=== PATIENT | male | born 1995 | race Caucasian/White ===

== ENCOUNTER 2019-05-16 19:01 | Emergency (ER) | payer SELFPAY ==
--- NOTE | 2019-05-16 20:25 | EDPHYS ---
Physician Documentation [facility] Name: Kojo Davalos Age: 24 yrs Sex: Male : 1995 Arrival Date: 05/16/2019 Time: 19:03 Bed 20 Private MD: ED Physician Antonio Espinoza HPI: 05/16 20:13 This 24 yrs old Male presents to ER via Ambulatory with complaints of Cough, kb Sore Throat. 20:13 The patient or guardian reports cough, that is intermittent, described as moderate, kb with no sputum. Onset: The symptoms/episode began/occurred 2 week(s) ago. Severity of symptoms: At their worst the symptoms were mild, moderate, in the emergency department the symptoms are unchanged. Modifying factors: The symptoms are alleviated by nothing, the symptoms are aggravated by nothing. Associated signs and symptoms: Pertinent positives: sore throat, Pertinent negatives: chest pain, diarrhea, ear ache, fever, nausea, rhinorrhea, vomiting. The patient has not experienced similar symptoms in the past. The patient has not recently seen a physician. Pt reports cough for 2 weeks and sore throat since this morning. Historical: - Allergies: 19:24 No Known Allergies; - Home Meds: 19:24 None [Active]; - PMHx: 19:24 Broken Ankle; Broke Rib; - PSHx: 19:24 None; - Immunization history:: Adult Immunizations not up to date. - Social history:: Smoking status: Patient uses tobacco products, denies chronic smoking, but will smoke occasionally. - Ebola Screening: : Patient negative for fever greater than or equal to 101.5 degrees Fahrenheit, and additional compatible Ebola Virus Disease symptoms Patient denies exposure to infectious person. ROS: 20:12 Constitutional: Negative for fever, chills, and weight loss, Neck: Negative for injury, kb pain, and swelling, Cardiovascular: Negative for chest pain, palpitations, and edema, Abdomen/GI: Negative for abdominal pain, nausea, vomiting, diarrhea, and constipation, Back: Negative for injury and pain, MS/Extremity: Negative for injury and deformity, Skin: Negative for injury, rash, and discoloration, Neuro: Negative for headache, weakness, numbness, tingling, and seizure. 20:12 ENT: Positive for sore throat. 20:12 Respiratory: Positive for cough, Negative for dyspnea on exertion, hemoptysis, orthopnea, pleurisy, shortness of breath, sputum production, wheezing. Exam: 20:12 Constitutional: This is a well developed, well nourished patient who is awake, alert, kb and in no acute distress. Head/Face: Normocephalic, atraumatic. Neck: Trachea midline, no thyromegaly or masses palpated, and no cervical lymphadenopathy. Supple, full range of motion without nuchal rigidity, or vertebral point tenderness. No Meningismus. Chest/axilla: Normal chest wall appearance and motion. Nontender with no deformity. No lesions are appreciated. Cardiovascular: Regular rate and rhythm with a normal S1 and S2. No gallops, murmurs, or rubs. Normal PMI, no JVD. No pulse deficits. Respiratory: Lungs have equal breath sounds bilaterally, clear to auscultation and percussion. No rales, rhonchi or wheezes noted. No increased work of breathing, no retractions or nasal flaring. Abdomen/GI: Soft, non-tender, with normal bowel sounds. No distension or tympany. No guarding or rebound. No evidence of tenderness throughout. Skin: Warm, dry with normal turgor. Normal color with no rashes, no lesions, and no evidence of cellulitis. MS/ Extremity: Pulses equal, no cyanosis. Neurovascular intact. Full, normal range of motion. Neuro: Awake and alert, GCS 15, oriented to person, place, time, and situation. Cranial nerves II-XII grossly intact. Motor strength 5/5 in all extremities. Sensory grossly intact. Cerebellar exam normal. Normal gait. 20:12 ENT: External ear(s): are unremarkable, Ear canal(s): are normal, TM's: are normal, Nose: is normal, Mouth: is normal, Posterior pharynx: Airway: normal, Tonsils: bilaterally enlarged, with erythema, Uvula: normal, midline, swelling, that is mild, erythema, that is moderate, exudate, is not appreciated. Vital Signs: 19:08 BP 117 / 65; Pulse 73; Resp 18; Temp 98.4(O); Pulse Ox 99% on R/A; Weight 63.5 kg (R); ae4 19:31 BP 113 / 63; Pulse 70; Resp 18; Pulse Ox 99% on R/A; wh MDM: 19:27 Patient medically screened. kb 20:10 Data reviewed: vital signs, nurses notes. Data interpreted: Pulse oximetry: on room air kb is 99 %. Interpretation: normal. Counseling: I had a detailed discussion with the patient and/or guardian regarding: the historical points, exam findings, and any diagnostic results supporting the discharge/admit diagnosis, radiology results, the need for outpatient follow up, a family practitioner, to return to the emergency department if symptoms worsen or persist or if there are any questions or concerns that arise at home. 05/16 19:09 Order name: Strep; Complete Time: 19:49 ae4 05/16 19:52 Order name: Throat Culture EDMS 05/16 19:41 Order name: Chest Pa And Lat (2 Views) XRAY kb Administered Medications: No medications were administered Disposition: 05/16/19 20:24 Discharged to Home. Impression: Acute pharyngitis, Cough. - Condition is Stable. - Discharge Instructions: Pharyngitis, Qyju-bg-Cuea, Cough, Adult, Fhpw-kc-Jysy, Sore Throat, Uhpd-et-Cvxa. - Prescriptions for Bromfed DM 2- 30-10 mg/5 mL Oral syrup - take 10 milliliter by ORAL route every 4 hours; 100 milliliter. - Medication Reconciliation Form, Thank You Letter, Antibiotic Education, Prescription Opioid Use, Work release form form. - Follow up: Emergency Department; When: As needed; Reason: Worsening of condition. Follow up: Private Physician; When: 2 - 3 days; Reason: Recheck today's complaints, Continuance of care, Re-evaluation by your physician. Addendum: 05/22/2019 08:03 Co-signature as Attending Physician, Antonio Espinoza MD I agree with the assessment and r n plan of care. Signatures: Dispatcher [employer] EDNM Juany Koch, MOHIT-C SALES OPERATIONS COORDINATOR-Antonio Canales MD MD rn Habalo, Winsy wh Corrections: (The following items were deleted from the chart) 05/16 20:36 20:24 05/16/2019 20:24 Discharged to Home. Impression: Acute pharyngitis; Cough. Condition is Stable. Discharge Instructions: Pharyngitis, Tern-qq-Aakl, Cough, Adult, Nyqe-ce-Gdkb, Sore Throat, Cirg-rg-Fpou. Prescriptions for Tessalon Perles 100 mg Oral Capsule - take 1 capsule by ORAL route every 8 hours As needed; 15 capsule. and Forms are Medication Reconciliation Form, Thank You Letter, Antibiotic Education, Prescription Opioid Use. Follow up: Emergency Department; When: As needed; Reason: Worsening of condition. Follow up: Private Physician; When: 2 - 3 days; Reason: Recheck today's complaints, Continuance of care, Re-evaluation by your physician. kb
--- NOTE | 2019-05-16 20:25 | ER ---
Nurse's Notes [facility] Name: Kojo Davalos Age: 24 yrs Sex: Male : 1995 Arrival Date: 05/16/2019 Time: 19:03 Bed 20 Private MD: Diagnosis: Acute pharyngitis;Cough Presentation: 05/16 19:09 Presenting complaint: Patient states: Patient states he has been coughing for 3 weeks, ae4 and now has sore throat. 19:21 Acuity: KELSEY 4 19:21 Transition of care: patient was not received from another setting of care. Onset of symptoms was May 16, 2019. Risk Assessment: Do you want to hurt yourself or someone else? Patient reports no desire to harm self or others. Initial Sepsis Screen: Does the patient meet any 2 criteria? No. Patient's initial sepsis screen is negative. Does the patient have a suspected source of infection? Yes: Productive cough/pneumonia. Care prior to arrival: None. 19:21 Method Of Arrival: Ambulatory Historical: - Allergies: 19:24 No Known Allergies; - Home Meds: 19:24 None [Active]; - PMHx: 19:24 Broken Ankle; Broke Rib; - PSHx: 19:24 None; - Immunization history:: Adult Immunizations not up to date. - Social history:: Smoking status: Patient uses tobacco products, denies chronic smoking, but will smoke occasionally. - Ebola Screening: : Patient negative for fever greater than or equal to 101.5 degrees Fahrenheit, and additional compatible Ebola Virus Disease symptoms Patient denies exposure to infectious person. Screenin:21 Abuse screen: Denies threats or abuse. Denies injuries from another. Nutritional screening: No deficits noted. Tuberculosis screening: No symptoms or risk factors identified. Fall Risk None identified. Assessment: 19:29 General: Appears in no apparent distress. Behavior is calm, cooperative, appropriate wh for age. Pain: Denies pain. Neuro: Level of Consciousness is awake, alert, obeys commands, Oriented to person, place, time, situation, Appropriate for age. Cardiovascular: Heart tones S1 S2. Respiratory: Reports cough that is Airway is patent Respiratory effort is even, unlabored, Respiratory pattern is regular, symmetrical, Breath sounds are clear bilaterally. GI: Abdomen is flat, non-distended. : No signs and/or symptoms were reported regarding the genitourinary system. EENT: Throat is pink. Derm: Skin is intact, is healthy with good turgor, Skin is pink, warm \T\ dry. normal. Musculoskeletal: Circulation, motion, and sensation intact. 20:36 Reassessment: Patient appears in no apparent distress at this time. No changes from previously documented assessment. Patient and/or family updated on plan of care and expected duration. Pain level reassessed. Patient is alert, oriented x 3, equal unlabored respirations, skin warm/dry/pink. Vital Signs: 19:08 BP 117 / 65; Pulse 73; Resp 18; Temp 98.4(O); Pulse Ox 99% on R/A; Weight 63.5 kg (R); ae4 19:31 BP 113 / 63; Pulse 70; Resp 18; Pulse Ox 99% on R/A; ED Course: 19:03 Patient arrived in ED. as 19:03 Juany Koch FNP-C is [facility]. 19:03 Antonio Espinoza MD is Attending Physician. 19:17 Dion Sandoval is Primary Nurse. 19:21 Triage completed. 19:24 Patient has correct armband on for positive identification. Bed in low position. Call light in reach. Side rails up X 1. Pulse ox on. NIBP on. 19:30 Arm band placed on. 20:06 Chest Pa And Lat (2 Views) XRAY In Process Unspecified. EDMS 20:35 No provider procedures requiring assistance completed. Patient did not have IV access during this emergency room visit. Administered Medications: No medications were administered Outcome: 20:24 Discharge ordered by . 20:35 Discharged to home ambulatory, with friend. 20:35 Condition: stable 20:35 Discharge instructions given to patient, Instructed on discharge instructions, follow up and referral plans. medication usage, POC Pharyngitis Demonstrated understanding of instructions, follow-up care, medications, POC Prescriptions given X 1. 20:36 Patient left the ED. Signatures: Dispatcher [employer] EDMS Juany Koch FNP-C FNP-Ckb Martinez, Amelia as Dion Sandoval Vincent Lees, RN RN ae4
--- NOTE | 2019-05-16 21:04 | RAD REPORT ---
EXAM DESCRIPTION: Xiomy Bauman (2 Views)05/16/2019 8:06 pm CLINICAL HISTORY: Cough COMPARISON: None FINDINGS: The lungs appear clear of acute infiltrate. The heart is normal size IMPRESSION: No acute abnormalities displayed
[2019-05-16 21:17] VITALS: TEMP 98.4; O2SAT 99
[2019-05-16 21:29] VITALS: BP 113/63
== END 2019-05-16 20:36 | disposition home or self-care (01) ==
LOC: ER 19:01
DX: R05 Cough (principal); Z72.0 Tobacco use
CPT/HCPCS: 71046; 87070; 87081; 99283

== ENCOUNTER 2019-05-19 06:55 | Emergency (ER) | payer SELFPAY ==
[2019-05-19] MEDS ORDERED: IBUPROFEN 400 MG TAB ONE (07:30)
[2019-05-19] MEDS ORDERED: dexAMETHasone 10 MG/ML VIAL ONE (07:33)
--- NOTE | 2019-05-19 08:10 | ER ---
Nurse's Notes [facility] Name: Kojo Davalos Age: 24 yrs Sex: Male : 1995 Arrival Date: 05/19/2019 Time: 06:58 Bed 20 Private MD: Diagnosis: Acute pharyngitis;Acute upper respiratory infection, unspecified Presentation: 05/19 07:20 Presenting complaint: Patient states: was seen here 2 days ago for similar symptoms, em reports symptoms of sore throat have not improved, denies fever, reports sweats, was told to come back if symptoms were not improving. Transition of care: patient was not received from another setting of care. Onset of symptoms was May 17, 2019. Risk Assessment: Do you want to hurt yourself or someone else? Patient reports no desire to harm self or others. Initial Sepsis Screen: Does the patient meet any 2 criteria? HR > 90 bpm. Does the patient have a suspected source of infection? No. Patient's initial sepsis screen is negative. Care prior to arrival: None. 07:20 Method Of Arrival: Ambulatory em 07:31 Acuity: KELSEY 4 iw Historical: - Allergies: 07:23 No Known Allergies; em - Home Meds: 07:23 None [Active]; em - PMHx: 07:23 Broke Rib; Broken Ankle; em - PSHx: 07:23 None; em - Immunization history:: Adult Immunizations up to date. - Social history:: Smoking status: Patient/guardian denies using tobacco. - Ebola Screening: : Patient negative for fever greater than or equal to 101.5 degrees Fahrenheit, and additional compatible Ebola Virus Disease symptoms Patient denies exposure to infectious person Patient denies travel to an Ebola-affected area in the 21 days before illness onset No symptoms or risks identified at this time. Screenin:26 Abuse screen: Denies threats or abuse. Nutritional screening: No deficits noted. em Tuberculosis screening: No symptoms or risk factors identified. Fall Risk None identified. Assessment: 07:07 Reassessment: pt called to return to room, pt in lobby restroom. em 07:20 General: Appears in no apparent distress. comfortable, Behavior is calm, cooperative, em Reports chills for 1-2 days. Pain: Complains of pain in throat Pain currently is 6 out of 10 on a pain scale. Quality of pain is described as sharp, piercing, Pain began 2-3 days ago. Neuro: Level of Consciousness is awake, alert, obeys commands, Oriented to person, place, time, situation, Appropriate for age. Cardiovascular: Capillary refill < 3 seconds Patient's skin is warm and dry. Respiratory: Airway is patent Respiratory effort is even, unlabored, Respiratory pattern is regular, symmetrical, Breath sounds are clear bilaterally. Onset: The symptoms/episode began/occurred 2 days ago. GI: Abdomen is flat, Patient currently denies nausea, vomiting. EENT: Throat is reddened has enlarged tonsils. Derm: Skin is intact, is healthy with good turgor, Skin is pink, warm \T\ dry. Musculoskeletal: Capillary refill < 3 seconds, Range of motion: intact in all extremities. 08:18 Reassessment: Patient appears in no apparent distress at this time. Patient and/or em family updated on plan of care and expected duration. Pain level reassessed. Patient is alert, oriented x 3, equal unlabored respirations, skin warm/dry/pink. Vital Signs: 07:23 BP 119 / 80; Pulse 96; Resp 18; Pulse Ox 100% on R/A; Weight 63.5 kg; Height 6 ft. 0 em in. (182.88 cm); Pain 8/10; 07:30 Temp 98.8(O); em 07:23 Body Mass Index 18.99 (63.50 kg, 182.88 cm) em ED Course: 06:58 Patient arrived in ED. es 06:58 Arpan Slaughter PA is PHCP. [facility] 06:58 Keo Agustin MD is Attending Physician. [facility] 07:05 Joey Gracia LVN is Primary Nurse. em 07:23 Arm band placed on. em 07:26 Patient has correct armband on for positive identification. Bed in low position. Call em light in reach. 07:31 Triage completed. iw 08:18 No provider procedures requiring assistance completed. Patient did not have IV access em during this emergency room visit. Administered Medications: 07:42 Drug: Decadron 10 mg Route: IM; Site: left deltoid; em 08:16 Follow up: Response: No adverse reaction; Marked relief of symptoms; Pain is decreased em 07:42 Drug: Motrin 800 mg Route: PO; em 08:16 Follow up: Response: No adverse reaction; Marked relief of symptoms; Pain is decreased em Outcome: 08:09 Discharge ordered by MD. angela 08:18 Discharged to home ambulatory. em 08:18 Condition: good 08:18 Discharge instructions given to patient, Instructed on discharge instructions, follow up and referral plans. medication usage, Demonstrated understanding of instructions, follow-up care, medications, Prescriptions given X 1. 08:19 Patient left the ED. em Signatures: Arpan Slaughter PA PA jmm Salyer, Edna es Munoz, Edgar, REGIONAL MARKETING MANAGER REGIONAL MARKETING MANAGER em Marium Johnston, RN RN iw
--- NOTE | 2019-05-19 08:10 | EDPHYS ---
Physician Documentation [facility] Name: Kojo Davalos Age: 24 yrs Sex: Male : 1995 Arrival Date: 05/19/2019 Time: 06:58 Bed 20 Private MD: ED Physician Keo Agustin HPI: 05/19 07:23 This 24 yrs old Male presents to ER via Ambulatory with complaints of Sore jmm Throat. 07:23 The patient presents with sore throat. Onset: The symptoms/episode began/occurred jmm gradually, 2 day(s) ago. Modifying factors: The symptoms are alleviated by nothing, the symptoms are aggravated by nothing. Associated signs and symptoms: Pertinent positives: cough, Pertinent negatives fever. This is a 24 year old male with no chronic medical conditions that presents to the ED with complaints of worsening sore throat, productive cough beginning 2 days ago. Was evaluated in the ED and advised to return if symptoms worsened. . Historical: - Allergies: 07:23 No Known Allergies; em - Home Meds: 07:23 None [Active]; em - PMHx: 07:23 Broke Rib; Broken Ankle; em - PSHx: 07:23 None; em - Immunization history:: Adult Immunizations up to date. - Social history:: Smoking status: Patient/guardian denies using tobacco. - Ebola Screening: : Patient negative for fever greater than or equal to 101.5 degrees Fahrenheit, and additional compatible Ebola Virus Disease symptoms Patient denies exposure to infectious person Patient denies travel to an Ebola-affected area in the 21 days before illness onset No symptoms or risks identified at this time. ROS: 07:23 Constitutional: Positive for body aches, chills. jmm 07:23 ENT: Positive for sore throat. 07:23 Respiratory: Positive for cough. 07:23 All other systems are negative. Exam: 07:23 Constitutional: This is a well developed, well nourished patient who is awake, alert, jmm and in no acute distress. Head/Face: atraumatic. Eyes: EOMI, no conjunctival erythema appreciated 07:23 Neck: Trachea midline, Supple Chest/axilla: Normal chest wall appearance and motion. 07:23 Back: Normal ROM Skin: General appearance color normal MS/ Extremity: Moves all extremities, no obvious deformities appreciated, no edema noted to the lower extremities Neuro: Awake and alert, normal gait Psych: Behavior is normal, Mood is normal, Patient is cooperative and pleasant 07:23 ENT: Posterior pharynx: erythema, that is mild. 07:23 ENT: Posterior pharynx: Uvula: midline, swelling, is not appreciated, peritonsillar mass, is not appreciated. 07:23 Cardiovascular: Rate: normal, Rhythm: regular, Pulses: no pulse deficits are appreciated. 07:23 Respiratory: the patient does not display signs of respiratory distress, Respirations: normal, Breath sounds: are clear throughout. Vital Signs: 07:23 BP 119 / 80; Pulse 96; Resp 18; Pulse Ox 100% on R/A; Weight 63.5 kg; Height 6 ft. 0 em in. (182.88 cm); Pain 8/10; 07:30 Temp 98.8(O); em 07:23 Body Mass Index 18.99 (63.50 kg, 182.88 cm) em MDM: 07:00 [facility] 08:01 Data reviewed: vital signs, nurses notes. Counseling: I had a detailed discussion with julio césar the patient and/or guardian regarding: the historical points, exam findings, and any diagnostic results supporting the discharge/admit diagnosis, lab results, the need for outpatient follow up, to return to the emergency department if symptoms worsen or persist or if there are any questions or concerns that arise at home. ED course: Patient is alert and non toxic in appearance in the ED. No signs of Resp distress appreciated. 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 Patient is otherwise given strict return precautions. patient understood and agrees with the plan of care. . 05/19 07:26 Order name: Strep; Complete Time: 08:01 [facility] 05/19 07:55 Order name: Throat Culture EDMS Administered Medications: 07:42 Drug: Decadron 10 mg Route: IM; Site: left deltoid; em 08:16 Follow up: Response: No adverse reaction; Marked relief of symptoms; Pain is decreased em 07:42 Drug: Motrin 800 mg Route: PO; em 08:16 Follow up: Response: No adverse reaction; Marked relief of symptoms; Pain is decreased em Disposition: 05/20 06:55 Co-signature as Attending Physician, Keo Agustin MD I agree with the assessment and [facility] plan of care. Disposition: 05/19/19 08:09 Discharged to Home. Impression: Acute pharyngitis, Acute upper respiratory infection, unspecified. - Condition is Stable. - Discharge Instructions: Pharyngitis, Upper Respiratory Infection, Adult. - Prescriptions for Zithromax Z- Javed 250 mg Oral Tablet - take 1 tablet by ORAL route as directed for 5 days Day 1 - take two (2) tablets one time. Day 2, 3, 4 , 5 take one (1) tablet once daily.; 6 tablet. - Medication Reconciliation Form, Thank You Letter, Antibiotic Education, Prescription Opioid Use, Work release form form. - Follow up: Private Physician; When: 2 - 3 days; Reason: Recheck today's complaints, Continuance of care, Re-evaluation by your physician. Signatures: Dispatcher [employer] EDKeo Silvestre MD MD cha Mickail, Joel, PA PA jmm Munoz, Edgar, FLOOR COVERING PRINTER ASSISTANT FLOOR COVERING PRINTER ASSISTANT em Corrections: (The following items were deleted from the chart) 05/19 08:19 08:09 05/19/2019 08:09 Discharged to Home. Impression: Acute pharyngitis; Acute upper em respiratory infection, unspecified. Condition is Stable. Forms are Medication Reconciliation Form, Thank You Letter, Antibiotic Education, Prescription Opioid Use. Follow up: Private Physician; When: 2 - 3 days; Reason: Recheck today's complaints, Continuance of care, Re-evaluation by your physician. julio césar
[2019-05-19 08:34] VITALS: BP 119/80; O2SAT 100
[2019-05-19 08:35] VITALS: TEMP 98.8
== END 2019-05-19 08:19 | disposition home or self-care (01) ==
LOC: ER 06:55
DX: J02.9 Acute pharyngitis, unspecified (principal)
CPT/HCPCS: 87070; 87081; 96372; 99283; J1100

== ENCOUNTER 2019-06-23 21:28 | Emergency (ER) | payer SELFPAY ==
--- NOTE | 2019-06-23 22:34 | ER ---
Nurse's Notes [facility] Name: Kojo Davalos Age: 24 yrs Sex: Male : 1995 Arrival Date: 06/23/2019 Time: 21:30 Bed Waiting Private MD: Diagnosis: ED Course: 06/23 21:30 Patient arrived in ED. cl3 21:44 [facility]-C [facility] kb 21:44 Keo Agustin MD is Attending Physician. kb 22:23 Triage completed. bb Administered Medications: No medications were administered Outcome: 22:32 Patient left the ED. bb Signatures: Juany Koch FNP-C FNP-Ckb Ballard, Brenda, RN RN bb Poonam Rausch cl3 Corrections: (The following items were deleted from the chart) 22:22 Presenting complaint: Patient states: Cough, congestion, chills for approx 1 week [facility] 22:22 Transition of care: patient was not received from another setting of care. [facility] 22:22 Complicating Factors: There are no complicating factors for this patient. [facility] 22:22 Onset of symptoms was June 15, 2019 [facility] 22:22 Risk Assessment: Do you want to hurt yourself or someone else? Patient reports no bb desire to harm self or others. 22:22 Initial Sepsis Screen: Does the patient meet any 2 criteria? No. Patient's bb initial sepsis screen is negative. Does the patient have a suspected source of infection? No. Patient's initial sepsis screen is negative. 22:22 Care prior to arrival: None. [facility] 22:22 Method Of Arrival: Ambulatory [facility] 22:22 Acuity: KELSEY 4 [facility] 22:22 Acuity: KELSEY 4 [facility]
== END 2019-06-23 22:32 | disposition left against medical advice (07) ==
LOC: ER 21:28
DX: Z53.21 Procedure and treatment not carried out due to patient leaving prior to being seen by health care provider (principal)
CPT/HCPCS: 99281

== ENCOUNTER 2019-08-21 07:29 | Emergency (ER) | payer SELFPAY ==
[2019-08-21] MEDS ORDERED: IBUPROFEN 400 MG TAB ONE (08:26)
--- NOTE | 2019-08-21 08:33 | RAD REPORT ---
EXAM DESCRIPTION: RAD - Lumbar Spine 3 Views - 08/21/2019 8:23 am CLINICAL HISTORY: PAIN, pain persist after trauma 4 days earlier COMPARISON: No comparisons FINDINGS: A three-view lumbar spine examination was performed. Lumbar bodies are normal in height and normal in AP alignment. No fracture or acute bony process seen . No disc space narrowing. No other significant findings. No pars defects identified. IMPRESSION: Negative Lumbar Spine examination. Concerns for disc herniation, central canal abnormality or occult bone process can be addressed with MR imaging.
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
[2019-08-21 09:25] VITALS: TEMP 98; O2SAT 100
[2019-08-21 09:27] VITALS: BP 110/74
== END 2019-08-21 09:15 | disposition home or self-care (01) ==
LOC: ER 07:29
DX: M54.5 Low back pain (principal); Y04.8XXA Assault by other bodily force, initial encounter; Y93.9 Activity, unspecified; Y92.9 Unspecified place or not applicable
CPT/HCPCS: 72100; 99283

== ENCOUNTER 2020-02-14 21:07 | Emergency (ER) | payer SELFPAY ==
[2020-02-14] MEDS ORDERED: TETRACAINE HCL 0.5% 4ML OPTH ONE (21:31)
[2020-02-14] MEDS ORDERED: FLUORESCEIN SODIUM 1 MG/WRAP ONE ×2 (21:31→21:58)
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
== END 2020-02-14 22:00 | disposition home or self-care (01) ==
LOC: ER 21:07
DX: S05.01XA Injury of conjunctiva and corneal abrasion without foreign body, right eye, initial encounter (principal); Z72.0 Tobacco use
CPT/HCPCS: 99283

== ENCOUNTER 2021-09-26 19:48 | Emergency (ER) | payer BC, SELFPAY ==
[2021-09-26] MEDS ORDERED: CEFAZOLIN SODIUM 1 GM/VIAL ONE (20:41)
[2021-09-26] MEDS ORDERED: WATER FOR INJ,STERILE 10 ML ONE (20:41)
[2021-09-26] MEDS ORDERED: TETANUS & DIPHTHERIA TOX,ADULT 0.5 ML VIAL ONE (20:41)
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
--- NOTE | 2021-09-26 21:54 | ER ---
Nurse's Notes [facility] Name: Kojo Davalos Age: 26 yrs Sex: Male : 1995 Arrival Date: 09/26/2021 Time: 19:50 Bed 25 Private MD: Diagnosis: Puncture wound without foreign body of right forearm, initial encounter Presentation: 09/26 19:51 Chief complaint: Patient states: cut right forearm by accident with razor blade. active lg3 bleeding at this time. Coronavirus screen: Client denies travel out of the [place] in the last 14 days. At this time, the client does not indicate any symptoms associated with coronavirus-19. Ebola Screen: No symptoms or risks identified at this time. Initial Sepsis Screen: Does the patient meet any 2 criteria? No. Patient's initial sepsis screen is negative. Does the patient have a suspected source of infection? No. Patient's initial sepsis screen is negative. Risk Assessment: Do you want to hurt yourself or someone else? Patient reports no desire to harm self or others. Onset of symptoms was September 26, 2021 at 19:00. 19:51 Method Of Arrival: Wheelchair lg3 19:51 Acuity: KELSEY 4 lg3 Triage Assessment: 19:53 General: Appears in no apparent distress. comfortable, Behavior is calm, cooperative. lg3 Pain: Denies pain. EENT: No deficits noted. No signs and/or symptoms were reported regarding the EENT system. Neuro: No deficits noted. Level of Consciousness is awake, alert, obeys commands, Oriented to person, place, time, situation. Cardiovascular: No deficits noted. Denies chest pain, shortness of breath. Respiratory: No deficits noted. Airway is patent Trachea midline Respiratory effort is even, unlabored, Respiratory pattern is regular, symmetrical. GI: No deficits noted. No signs and/or symptoms were reported involving the gastrointestinal system. : No deficits noted. No signs and/or symptoms were reported regarding the genitourinary system. Derm: Wound noted right forearm. Musculoskeletal: No deficits noted. No signs and/or symptoms reported regarding the musculoskeletal system. Circulation, motion, and sensation intact. Capillary refill < 3 seconds, Range of motion: intact in all extremities. Injury Description: Laceration. Historical: - Allergies: 19:53 No Known Allergies; lg3 - Home Meds: 19:53 None [Active]; lg3 - PMHx: 19:53 Broke Rib; Broken Ankle; lg3 - PSHx: 19:53 None; lg3 - Immunization history:: Adult Immunizations up to date, Last tetanus immunization: unknown. - Social history:: Smoking status: Patient denies any tobacco usage or history of. Patient uses alcohol, occasionally. Screenin:55 Abuse screen: Denies threats or abuse. Denies injuries from another. Nutritional lg3 screening: No deficits noted. Tuberculosis screening: No symptoms or risk factors identified. Fall Risk None identified. Assessment: 20:00 General: Appears in no apparent distress. comfortable, Behavior is calm, cooperative, jb4 appropriate for age. Pain: Complains of pain in dorsal aspect of right forearm Pain does not radiate. Pain currently is 6 out of 10 on a pain scale. Neuro: Level of Consciousness is awake, alert, obeys commands, Oriented to person, place, time, situation. Cardiovascular: Patient's skin is warm and dry. Respiratory: Airway is patent Respiratory effort is even, unlabored, Respiratory pattern is regular, symmetrical. GI: No signs and/or symptoms were reported involving the gastrointestinal system. : No signs and/or symptoms were reported regarding the genitourinary system. EENT: No signs and/or symptoms were reported regarding the EENT system. Derm: Skin is intact, Skin is pink, warm \T\ dry. Musculoskeletal: Circulation, motion, and sensation intact. Range of motion: intact in all extremities. 21:00 Reassessment: Patient appears in no apparent distress at this time. Patient and/or jb4 family updated on plan of care and expected duration. Pain level reassessed. Patient is alert, oriented x 3, equal unlabored respirations, skin warm/dry/pink. 22:00 Reassessment: Patient appears in no apparent distress at this time. Patient and/or jb4 family updated on plan of care and expected duration. Pain level reassessed. Patient is alert, oriented x 3, equal unlabored respirations, skin warm/dry/pink. Vital Signs: 19:51 BP 126 / 77; Pulse 93; Resp 16; Temp 98.3(O); Pulse Ox 99% on R/A; Weight 63.5 kg (R); lg3 Height 6 ft. (182.88 cm) (R); Pain 0/10; 19:51 Body Mass Index 18.99 (63.50 kg, 182.88 cm) lg3 ED Course: 19:50 Patient arrived in ED. oe 19:53 Triage completed. lg3 19:53 Arm band placed on left wrist. lg3 19:54 Juventino Woodard NP is PHCP. pm1 19:54 Aldo Lawrence MD is Attending Physician. pm1 19:55 Patient has correct armband on for positive identification. Bed in low position. Call lg3 light in reach. Side rails up X 1. 20:29 Jignesh Zurita, RN is Primary Nurse. jb4 21:06 Forearm Right XRAY In Process Unspecified. EDMS 22:00 No provider procedures requiring assistance completed. IV discontinued, intact, jb4 bleeding controlled, No redness/swelling at site. Pressure dressing applied. Administered Medications: 21:00 Drug: Tetanus-Diphtheria Toxoid Adult 0.5 ml {Business Developer: [employer]. Exp: jb4 11/13/2022. Lot #: [id number]. } Route: IM; Site: left deltoid; 22:08 Follow up: Response: No adverse reaction jb4 21:01 Drug: Ancef (cefazolin) 1 grams Route: IM; Site: left gluteus; jb4 22:08 Follow up: Response: No adverse reaction jb4 Outcome: 21:54 Discharge ordered by . pm1 22:00 Discharged to home ambulatory, with family. jb4 22:00 Condition: stable 22:00 Discharge instructions given to patient, Instructed on discharge instructions, follow up and referral plans. medication usage, Demonstrated understanding of instructions, follow-up care, medications, Prescriptions given X 1. 22:08 Patient left the ED. jb4 Signatures: Dispatcher [employer] EDMS Juventino Woodard NP RELEASE OF INFORMATION CLERK pm1 Jignesh Zurita, RN RN jb4 Tr Houston Lacie, RN RN lg3
--- NOTE | 2021-09-26 21:55 | EDPHYS ---
Physician Documentation [facility] Name: Kojo Davalos Age: 26 yrs Sex: Male : 1995 Arrival Date: 09/26/2021 Time: 19:50 Bed 25 Private MD: ED Physician Aldo Lawrence HPI: 09/26 20:12 This 26 yrs old Male presents to ER via Wheelchair with complaints of Punture wound. pm1 22:01 The patient has a laceration occurred at home, and The type of wound is a puncture. The pm1 injury was Cut self with razor blade as he was stripping wires. The laceration(s) is(are) located on the right forearm. Onset: The symptoms/episode began/occurred today. Associated signs and symptoms: Pertinent negatives: deformity, suspected foreign body. The patient has not experienced similar symptoms in the past. The patient has not recently seen a physician. Historical: - Allergies: 19:53 No Known Allergies; lg3 - Home Meds: 19:53 None [Active]; lg3 - PMHx: 19:53 Broke Rib; Broken Ankle; lg3 - PSHx: 19:53 None; lg3 - Immunization history:: Adult Immunizations up to date, Last tetanus immunization: unknown. - Social history:: Smoking status: Patient denies any tobacco usage or history of. Patient uses alcohol, occasionally. ROS: 22:01 Constitutional: Negative for fever, chills, and weight loss, Cardiovascular: Negative pm1 for chest pain, palpitations, and edema, Respiratory: Negative for shortness of breath, cough, wheezing, and pleuritic chest pain. 22:01 Neuro: Negative for headache, weakness, numbness, tingling, and seizure. 22:01 MS/extremity: Positive for puncture, of the right forearm, Negative for decreased range of motion, deformity, swelling. 22:01 Skin: Positive for puncture, of the right forearm. 22:01 All other systems are negative. Exam: 22:01 Constitutional: This is a well developed, well nourished patient who is awake, alert, pm1 and in no acute distress. Head/Face: Normocephalic, atraumatic. 22:01 Cardiovascular: Exam negative for acute changes, Rate: normal, Rhythm: regular, Pulses: no pulse deficits are appreciated. 22:01 Respiratory: Exam negative for acute changes, respiratory distress, shortness of breath. 22:01 Musculoskeletal/extremity: Compartment Syndrome exam of affected extremity: is normal. Full range of motion intact to right hand and wrist. 22:01 Skin: injury, puncture(s), of the palmar aspect of right forearm. Vital Signs: 19:51 BP 126 / 77; Pulse 93; Resp 16; Temp 98.3(O); Pulse Ox 99% on R/A; Weight 63.5 kg (R); lg3 Height 6 ft. (182.88 cm) (R); Pain 0/10; 19:51 Body Mass Index 18.99 (63.50 kg, 182.88 cm) lg3 MDM: 19:56 Patient medically screened. pm1 21:38 Data reviewed: vital signs. Data interpreted: Pulse oximetry: on room air is 99 %. pm1 Interpretation: normal. Counseling: I had a detailed discussion with the patient and/or guardian regarding: the historical points, exam findings, and any diagnostic results supporting the discharge/admit diagnosis, radiology results, the need for outpatient follow up. 09/26 20:17 Order name: Forearm Right XRAY; Complete Time: 21:40 pm1 09/26 20:12 Order name: Wound Care; Complete Time: 21:01 pm1 Administered Medications: 21:00 Drug: Tetanus-Diphtheria Toxoid Adult 0.5 ml {Behavioral Health Consultant: [employer]. Exp: jb4 11/13/2022. Lot #: [id number]. } Route: IM; Site: left deltoid; 22:08 Follow up: Response: No adverse reaction jb4 21:01 Drug: Ancef (cefazolin) 1 grams Route: IM; Site: left gluteus; jb4 22:08 Follow up: Response: No adverse reaction jb4 Disposition: 09/27 07:05 Co-signature as Attending Physician, Aldo Lawrence MD. [email or web address] Disposition Summary: 09/26/21 21:54 Discharge Ordered Location: Home pm1 Problem: new pm1 Symptoms: have improved pm1 Condition: Stable pm1 Diagnosis - Puncture wound without foreign body of right forearm, initial encounter pm1 Followup: pm1 - With: Emergency Department - When: As needed - Reason: Worsening of condition Followup: pm1 - With: Private Physician - When: 2 - 3 days - Reason: Recheck today's complaints, Continuance of care, Re-evaluation by your physician Discharge Instructions: - Discharge Summary Sheet pm1 - Puncture Wound pm1 Forms: - Medication Reconciliation Form pm1 - Thank You Letter pm1 - Antibiotic Education pm1 - Prescription Opioid Use pm1 Prescriptions: - Cephalexin 500 mg Oral Capsule - take 1 capsule by ORAL route every 6 hours for 10 days; 40 capsule; Refills: 0, pm1 Product Selection Permitted Signatures: Dispatcher [employer] EDDE Juventino Woodard NP PUBLICITY EXPERT pm1 Jignesh Zurita RN RN jb4 Shira Lua RN RN lg3 Aldo Lawrence MD MD mh7
[2021-09-26 22:35] VITALS: BP 126/77; TEMP 98.3; O2SAT 99
== END 2021-09-26 22:08 | disposition home or self-care (01) ==
LOC: ER 19:48
DX: S51.831A Puncture wound without foreign body of right forearm, initial encounter (principal); W26.8XXA Contact with other sharp object(s), not elsewhere classified, initial encounter; Y93.9 Activity, unspecified; Y92.019 Unspecified place in single-family (private) house as the place of occurrence of the external cause; Z23 Encounter for immunization
CPT/HCPCS: 73090; 90471; 90714; 96372; 99283; J0690

== ENCOUNTER → 2023-08-13 | Emergency (ER) | payer BC, OTHER ==
--- NOTE | 2023-08-13 09:27 | RAD REPORT ---
EXAM DESCRIPTION: RAD - Shoulder Right 2 View - 08/13/2023 9:19 am CLINICAL HISTORY: PAIN COMPARISON: No comparisons FINDINGS/IMPRESSION: No acute fracture. No malalignment. No significant focal degenerative changes.
--- NOTE | 2023-08-13 09:31 | RAD REPORT ---
EXAM DESCRIPTION: RAD - Wrist Left 3 View - 08/13/2023 9:19 am CLINICAL HISTORY: PAIN COMPARISON: No comparisons FINDINGS/IMPRESSION: No acute fracture. No malalignment. No significant focal degenerative changes.
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
[2023-08-13 10:45] VITALS: BP 114/77; TEMP 98.1; O2SAT 96
== END ==
LOC: ER 08:43
DX: M25.511 Pain in right shoulder (principal); M25.532 Pain in left wrist; V28.09XA Other motorcycle driver injured in noncollision transport accident in nontraffic accident, initial encounter
CPT/HCPCS: 70450; 72125; 71260; 74177; 73030; 73110; Q9967

== ENCOUNTER 2024-07-11 17:26 | Emergency (ER) | payer SELFPAY ==
[2024-07-11 20:12] LABS: Absolute Basophils 0.1 K/uL (0-0.5); Absolute Eosinophils 0.2 K/uL (0-0.5); Absolute Lymphocytes (CBC) 3.7 K/uL (0.7-4.9); Absolute Monocytes 0.6 K/uL (0.1-1.3); Absolute Neutrophil 4.1 K/uL (1.8-8.0); Basophils % 1.1 % (0-1.3); Eosinophils % 2.1 % (0-4.4); Hematocrit 47.9 % (39.6-49.0); Hemoglobin 16.3 g/dL (13.6-17.9); Lymphocytes % 42.7 % (15.3-44.8); MCH 29.2 pg (27.0-35.0); MCHC 34.1 g/dL (32.0-36.0); MCV 85.5 fL (80-100); MPV 6.8 fL (7.6-11.3); Monocytes % 7.4 % (3.3-12.3); Neutrophils % 46.7 % (41.7-73.7); Nucleated Red Blood Cells % 0.1 % (0-0); Platelets 295 thou/uL (152-406); Red Cell Distribution Width 14.1 % (12.1-15.2)
[2024-07-11] MEDS ORDERED: IBUPROFEN 400 MG TAB ONE (20:25)
[2024-07-11] MEDS ORDERED: HYDROCODONE/APAP 7.5/325 MG TAB ONE (20:26)
--- NOTE | 2024-07-11 20:37 | RAD REPORT ---
EXAM: Hand Left 3 View HISTORY: crush injury to index finger COMPARISON: None FINDINGS: Bones: Comminuted nondisplaced fracture involving the second middle phalanx. The fracture involves ne cristi the full extent of the phalanx and extends to the PIP joint but not the DIP joint.. Alignment:No significant malalignment. Degenerative changes:None significant. Other: n/a IMPRESSION: Comminuted nondisplaced second middle phalanx fracture with extension to the PIP joint.
[2024-07-11 21:09] LABS: Anion Gap 6.5 mEq/L (5.0-15.0); BUN Blood Urea Nitrogen 14 mg/dL (7-18); Bicarbonate 27 mEq/L (21-32); Glomerular Filtration Rate 99 ml/min (=/>90); Glucose Level 91 mg/dL (74-106); Sodium Level 138 mEq/L (136-145)
[2024-07-11 21:11] LABS: C-Reactive Protein < 2.90 mg/L (<3.00); Potassium 3.5 mEq/L (3.5-5.1)
[2024-07-11] MEDS ORDERED: CEFAZOLIN SODIUM 1 GM/VIAL ONE (21:28)
[2024-07-11] MEDS ORDERED: NA CHLORIDE 0.9% 100 ML ONE (21:28)
[2024-07-11] MEDS ORDERED: NA CHLORIDE 0.9% 500 ML ONE (21:28)
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
[2024-07-12 03:20] VITALS: BP 122/76; TEMP 98; O2SAT 100
== END 2024-07-11 22:18 | disposition left against medical advice (07) ==
LOC: ER 17:26
DX: S62.651B Nondisplaced fracture of middle phalanx of left index finger, initial encounter for open fracture (principal); L03.012 Cellulitis of left finger
CPT/HCPCS: 36415; 80048; 85025; 86140; 96365; 99284; J0690; J7040